=== PATIENT | female | born 1975 | race Caucasian/White ===

== ENCOUNTER 2019-12-22 11:14 | Emergency (ER) | payer SELFPAY ==
[2019-12-22 11:15] VITALS: BP 137/92; PULSE 104; RESP 20; TEMP 36.7; O2SAT 99
--- NOTE | 2019-12-22 11:32 | ED.GENADULT ---
HPI - General Adult General Chief complaint: Skin/Abscess/Foreign Body Stated complaint: rash Time Seen by Provider: 12/22/19 11:32 Source: patient Mode of arrival: ambulatory Limitations: no limitations History of Present Illness HPI narrative: 44-year-old female patient presents to the [facility] with complaints of a rash to the vaginal area. Patient states she does have a history of psoriasis that pops up in this area and she has had this for years. Patient states it is very itchy recently but denies any fevers. Denies any concerns for STDs. Denies any vaginal discharge. Patient denies any history of diabetes. Patient states that she has used triamcinolone for this in the past and it has worked well but she currently does not have a primary doctor. Related Data Allergies Allergy/AdvReac Type Severity Reaction Status Date / Time No Known Allergies Allergy Verified 12/22/19 11:30 Review of Systems Review of Systems: Narrative: CONSTITUTIONAL: Denies fever, chills, or sweats. EYES: Denies visual changes, redness, or discharge. ENT: Denies rhinorrhea, congestion, sore throat, or otalgia. CARDIOVASCULAR: Denies chest pain, palpitations, or edema. RESPIRATORY: Denies cough or dyspnea. GASTROINTESTINAL: Denies abdominal pain, nausea, vomiting, or diarrhea. GENITOURINARY: Denies dysuria or hematuria. SKIN: Positive rash with itching to vaginal area. MUSCULOSKELETAL: Denies back pain, joint pain, or myalgia. NEUROLOGIC: Denies headache, numbness, or weakness. PSYCHIATRIC: Denies anxiety or depression. PMFSH Comments At the time of my signature I agree with nursing past medical history, surgical, social, and family history. There is no relevant family history pertinent to the presenting complaint. Exam Narrative: Exam Narrative: GENERAL: Well-appearing, well-nourished, and in no acute distress. HEAD: Normocephalic, atraumatic. EYES: PERRLA and EOMI. ENT: Nares clear, no rhinorrhea or epistaxis. Mucous membranes moist. NECK: Supple. No lymphadenopathy CHEST: Clear to auscultation. No respiratory distress. HEART: Regular rate and rhythm. No murmur heard. Normal peripheral pulses. ABDOMEN: Soft, nontender, nondistended, normal active bowel sounds. EXTREMITIES: Normal range of motion. No edema. SKIN: Warm, dry. Patient has rash noted to the right vulva area of the vaginal area. There is no open wounds or drainage. Patient does complain of itching to the site. Does appear to have some plaques noted to the area with a little bit of redness. NEURO: No focal deficits. Alert and oriented x3. Course Vital Signs Vital signs: Vital Signs Temperature 36.7 C 12/22/19 11:15 Pulse Rate 104 H 12/22/19 11:15 Respiratory Rate 20 12/22/19 11:15 Blood Pressure 137/92 H 12/22/19 11:15 Pulse Oximetry 99 12/22/19 11:15 Temperature 36.7 C 12/22/19 11:15 Pulse Rate 104 H 12/22/19 11:15 Respiratory Rate 12/22/19 11:15 Blood Pressure 137/92 H 12/22/19 11:15 Pulse Oximetry 99 12/22/19 11:15 Vital signs reviewed. The patient has been informed that they may have pre-hypertension or Hypertension based on a BP reading in the department. I recommend that the patient call the primary care provider listed on their discharge instructions or a physician of their choice this week to arrange follow up for further evaluation of possible pre-hypertension or Hypertension Medical Decision Making Differential Diagnosis Differential Diagnosis: Differential diagnosis: Contact dermatitis, poison aguilar, poison sumac, psoriasis, eczema, allergic reaction, drug reaction, scabies, tinea syphilis, lung disease, viral exanthema, pityriasis, erythema multiforme. Notify patient that I will go ahead and give her some triamcinolone today since this has helped in the past as well as a refill on this and then she needs to follow-up with a primary doctor in regards to managing this in the future. Patient verbalized understanding of this. Dis
== END 2019-12-22 11:45 | disposition home or self-care (01) ==
PROVIDERS: Emergency Provider Nurse Practitioner Family
DX: L40.9 Psoriasis, unspecified (principal)
CPT/HCPCS: 99213; G0463

== ENCOUNTER 2020-02-22 15:49 | Emergency (ER) | payer MEDICAID, SELFPAY ==
[2020-02-22 15:56] VITALS: BP 135/81; PULSE 95; RESP 20; TEMP 37; O2SAT 100
--- NOTE | 2020-02-22 16:13 | ED.GENADULT ---
HPI - General Adult General Chief complaint: Urogenital-Female Stated complaint: uti Time Seen by Provider: 02/22/20 16:14 Source: patient and RN notes reviewed Mode of arrival: ambulatory Limitations: no limitations History of Present Illness HPI narrative: 44-year-old female presents with urinary complaints intermittently for the past 30 days. Dysuria consist of suprapubic pressure, low back pain, decrease urine output, frequency, and urgency.? Symptoms increased over the past 24 hours. No treatment.? Denies fever or chills. No significant pelvic pain. No vaginal discharge.? No concerns for STDs. Exacerbating factors urinating.? Denies hematuria or vaginal bleeding. Denies being , LMP 3 weeks ago.? No flank pain. Denies nausea, vomiting, and abdominal pain.? Tolerating liquids well.? Remains active. The patient reports they have not been diagnosed with COVID-19. The patient reports they are not waiting for the results of a COVID-19 lab test. The patient reports they do not have fever, chills, weakness, fatigue, myalgia, or facial swelling. The patient reports they do not have a new or worsening cough or shortness of breath. Denies chest pain. The patient reports they do not have any rhinorrhea, congestion, sore throat, nausea, vomiting, abdominal pain, and diarrhea. Tolerating po intake well. Denies recent traveling. Denies concerns for COVID-19 or exposures been home since [id number] order except for essential household needs, working, and return home. At this time, patient is not suspected of having COVID-19. Some parts of this dictation were generated by voice recognition software and may contain typographical and/or grammatical inaccuracies. Related Data Allergies Allergy/AdvReac Type Severity Reaction Status Date / Time No Known Allergies Allergy Verified 02/22/20 16:08 Review of Systems Review of Systems: Narrative: CONSTITUTIONAL: Denies fever, chills, sweats. EYES: Denies visual changes, redness, discharge. ENT: Denies rhinorrhea, congestion, sore throat, otalgia. CARDIOVASCULAR: Denies chest pain, palpitations, edema. RESPIRATORY: Denies dyspnea, wheezing, cough. GASTROINTESTINAL: Denies abdominal pain, nausea, vomiting, diarrhea. Complains of suprapubic pressure. GENITOURINARY: Complains of dysuria (decrease urine output, frequency, and urgency). Denies hematuria, abnormal discharge. SKIN: Denies rash or itching. MUSCULOSKELETAL: Complains of low back pain. Denies joint pain or myalgia. NEUROLOGIC: Denies numbness or focal weakness. PSYCHIATRIC: Denies anxiety or depression. All systems reviewed & are unremarkable except as noted in HPI and below. [facility] Past Medical History Medical History (Updated 02/22/20 @ 17:03 by JAQUELINE Chilel) Psoriasis Surgical History Surgical History (Updated 02/22/20 @ 16:23 by JAQUELINE Chilel) History of tubal ligation Family History Family History (Updated 02/22/20 @ 16:24 by JAQUELINE Chilel) Father Alive and well Mother Alive and well Sibling Diabetes mellitus Social History Social History (Updated 02/22/20 @ 16:25 by JAQUELINE Chilel) Smoking status: Former smoker Tobacco type: cigarettes Smoking end date: 09/27/04 Alcohol intake: never Substance use: never Living arrangements: with family Gender identity (if verbalized by the patient): Female Comments At time of signature, agree with nurse past medical, surgical, social, and family history.? There is no relevant family history pertinent to the presenting complaint. Exam Narrative: Exam Narrative: GENERAL: This is a well-nourished, well-developed patient, in no apparent distress.? Talks in full sentences and ambulates with steady gait without dyspnea. HEAD: normocephalic, atraumatic. EYES: PERRL. Sclera clear/white. Vision is grossly intact. CARDIOVASCULAR: Regular rate and rhythm without murmurs, gallops, or rubs. RESPIRATORY: Clear to auscul
== END 2020-02-22 16:30 | disposition home or self-care (01) ==
PROVIDERS: Emergency Provider Nurse Practitioner Family
DX: R30.0 Dysuria (principal); Z87.891 Personal history of nicotine dependence; R03.0 Elevated blood-pressure reading, without diagnosis of hypertension
CPT/HCPCS: 81003; 87077; 87086; 87088; 87186; 99213; G0463

== ENCOUNTER 2022-02-25 10:51 | Outpatient (CLI) | payer OTHER, SELFPAY ==
--- NOTE | ~2022-02-25 | XR_ITS ---
XR chest 2V 02/25/2022 11:07 Indication: Cough and fever Procedure: 2 view chest Comparison: No prior studies for comparison. Findings: There are lingular and left lower lobe infiltrates, consistent with pneumonia. Heart size n ormal. Right lung clear. No acute osseous abnormality. Impression: 1: Lingular and left lower lobe pneumonia. Reviewed, dictated and finalized at location A. Impression: 1: Lingular and left lower lobe pneumonia.
== END 2022-02-25 10:52 | disposition home or self-care (01) ==
PROVIDERS: PCP Physician Assistant; Visit Provider Physician Assistant
DX: R05.9 Cough, unspecified (principal); J18.9 Pneumonia, unspecified organism; R50.9 Fever, unspecified; R06.02 Shortness of breath
CPT/HCPCS: 71046

== ENCOUNTER 2022-03-10 08:27 | Emergency (ER) | payer OTHER, SELFPAY ==
--- NOTE | 2022-03-10 08:30 | ED.ALLEREA ---
HPI - Allergic Reaction General Stated complaint: Allergic Reaction Time Seen by Provider: 03/10/22 08:28 Source: patient Mode of arrival: ambulatory Limitations: no limitations History of Present Illness HPI narrative: 46-year-old female presents with concern for allergic reaction. Reports she had exposure to basil last night, which is the only new food or product she has been exposed to that she can think of. Reports she had some tongue swelling last night and took Benadryl with good decrease in symptoms Reports she woke up this morning with worsening tongue swelling and difficulty swallowing. She reports she feels like her whole mouth is swollen. She denies shortness of breath, diarrhea, vomiting, fever, lip swelling. She denies rash MD complaint: allergic reaction Related Data Home Medications Medication Instructions Recorded Confirmed magnesium 200 mg tablet 400 mg PO DAILY 03/20/21 02/27/22 melatonin 10 mg tablet 10 mg PO QHS 03/20/21 02/27/22 omeprazole 20 mg tablet,delayed 20 mg PO DAILY 03/20/21 02/27/22 release ferrous sulfate 325 mg (65 mg 325 mg PO DAILY 04/29/21 02/27/22 iron) tablet Allergies Allergy/AdvReac Type Severity Reaction Status Date / Time No Known Allergies Allergy Verified 02/25/22 08:58 Review of Systems Review of Systems: CONSTITUTIONAL: Denies malaise, chills, sweats, or fever. EYES: Denies visual changes, redness, or discharge. ENT: Denies rhinorrhea, congestion, sinus pain, otalgia or sore throat. Reports swollen tongue and throat CARDIOVASCULAR: Denies chest pain, palpitations, or edema. RESPIRATORY: Denies cough or dyspnea. GASTROINTESTINAL: Denies abdominal pain, nausea, vomiting, diarrhea SKIN: Denies rash or itching. NEUROLOGIC: Denies numbness, weakness, or headache. PSYCHIATRIC: Reports anxiety All systems reviewed & are unremarkable except as noted in HPI and below PMFSH Past Medical History Medical History Allergies Anxiety Psoriasis Surgical History Surgical History History of tubal ligation Family History Family History Father Alive and well Alcoholism Mother Alive and well Depression Anxiety Sibling Diabetes mellitus Anxiety Depression Thyroid disease Grandparent Depression Anxiety Thyroid disease Social History Social History Years smoked: 3 Smoking status: Current every day smoker Tobacco type: cigarettes Smoking end date: 09/27/04 Alcohol intake: never Substance use: never Gender identity (if verbalized by the patient): Female Comments At time of signature, agree with nursing past medical, surgical, social and family history. There is no relevant family history pertinent to the presenting complaint Exam Narrative: GENERAL: Nontoxic-appearing and in no acute distress. HEAD: Normocephalic, atraumatic. EYES: PERRLA, sclera clear, and EOMI. ENT: Nares clear, turbinates pink, no rhinorrhea or epistaxis. Mucous membranes moist. Oropharynx without erythema or lesions. Swollen tongue noted, no uvular edema, no lip edema NECK: Supple. CHEST: No respiratory distress. Clear to auscultation. No bony deformities, no asymmetry. Speaks in full sentences. HEART: Fast rate. No murmur heard. Normal peripheral pulses. SKIN: Warm, dry, no visible rash. NEURO: Alert and oriented x3. No focal deficits. Cranial nerves II through XII grossly intact PSYCH: Anxious Course Course Emergency Course: Patient is aware, understands and agrees to transfer to the emergency department. Patient refused EMS, agrees to proceed directly to the emergency department. Portions of this record may have been created with voice recognition software Level of Care: Express Care Visit Reevaluation(s) Reevaluation #1: Patient re
[2022-03-10 08:31] VITALS: BP 149/92; PULSE 140; RESP 22; TEMP 36.9; O2SAT 97
[2022-03-10] MEDS: FAMOTIDINE 20 MG TABLET 40 MG PO (08:35)
[2022-03-10] MEDS: methylPREDNISolone SOD SUCC 125 MG VIAL IM (08:36)
== END 2022-03-10 09:50 | disposition short-term general hospital (02) ==
PROVIDERS: Emergency Provider Nurse Practitioner
DX: R22.0 Localized swelling, mass and lump, head (principal); R07.0 Pain in throat; T78.40XA Allergy, unspecified, initial encounter; Z87.891 Personal history of nicotine dependence
CPT/HCPCS: 87081; 87880; 96372; 99213; A9270; G0463; J2930

== ENCOUNTER 2024-02-04 09:03 | Outpatient (CLI) | payer OTHER, SELFPAY ==
--- NOTE | ~2024-02-04 | MM_ITS ---
EXAMINATION: MM screening [facility]ion[facility] BI w rudolph HISTORY: Screening mammogram TECHNIQUE: Craniocaudal and mediolateral oblique 3-D tomosynthesis images were obtained and synthetic 2-D images were generated. CAD analysis was submitted and interpreted. COMPARISON: No prior mammogram is available for comparison at this institution. BREAST PARENCHYMAL COMPOSITION: There are scattered areas of fibroglandular density. FINDINGS: There is no evidence of suspicious mass, calcification, or architectural distortion to sugg est malignancy in either breast. IMPRESSION: 1. No mammographic evidence of malignancy. 2. Recommend routine screening mammography in one year. BI-RADS Category 1: Negative Reviewed, dictated and finalized at location B.
== END 2024-02-04 09:04 | disposition home or self-care (01) ==
LOC: ANHIMG 09:07
PROVIDERS: PCP Physician Assistant; Visit Provider Physician Assistant
DX: Z12.31 Encounter for screening mammogram for malignant neoplasm of breast (principal)
CPT/HCPCS: 77063; 77067

== ENCOUNTER 2024-02-24 10:06 | Outpatient (CLI) | payer OTHER, SELFPAY ==
--- NOTE | ~2024-02-24 | XR_ITS ---
EXAMINATION: XR lumbar spine 6V w bending DATE: 02/24/2024 10:27 INDICATION: Low back pain, unspecified. TECHNIQUE: 7 views of lumbar spine including standing views and flexion and extension views were obta ined. COMPARISON: None. FINDINGS: There is 5 degrees levocurvature of lumbar spine. The spine is hypomobile with flexion and extension. Vertebral body heights are normal. There is severely decreased disc height at L4-L5 and L5 -S1. There is multilevel facet joint osteoarthritis, severe on the right at L4-L5 and and bilaterally at L5-S1. IMPRESSION: 1. Severe lower lumbar spondylosis. Reviewed, dictated and finalized at location A.
== END 2024-02-24 10:07 | disposition home or self-care (01) ==
LOC: ANHIMG 10:07
PROVIDERS: PCP Physician Assistant; Visit Provider Physician Assistant
DX: M54.50 Low back pain, unspecified (principal); M43.06 Spondylolysis, lumbar region
CPT/HCPCS: 72114